=== PATIENT | male | born 1985 | race Caucasian/White ===

== ENCOUNTER 2017-10-18 02:42 | Emergency (ER) | payer OTHER, SELFPAY ==
[2017-10-18 02:43] VITALS: BP 139/83; PULSE 111; RESP 16; TEMP 36.8; O2SAT 96; BMI 29.3
--- NOTE | 2017-10-18 02:49 | ED.RN ---
CALLED [facility] FOR [facility] TESTING
--- NOTE | 2017-10-18 04:34 | ED.DCSUM_ITS ---
- ER Visit Summary Date of Service: 10/18/17 Chief Complaint: Left elbow laceration History of Present Illness: The patient is a 31 M who presents with a left elbow laceration. He was at work. He was cutting a piece of steel when his arm slipped and he caught his elbow on the edge of the steel. This occurred shortly prior to arrival. He complains of mild pain. Physical Examination: Afebrile vital signs stable No distress Heart regular Lungs clear There is a 2-1/2 cm crescent-shaped laceration over the right elbow active full range of motion this extends only into the subcutaneous tissue I do not appreciate any muscle or tendon injury Neurovascularly intact distally with normal sensation and brisk capillary refill Test Results: Not indicated Emergency Department Course and Treatment: Patient was anesthetized with 1% local lidocaine. His wound was irrigated with sterile saline. It was closed with a total of 6 simple interrupted 4-0 nonabsorbable sutures. Patient was instructed on local wound care. He understands to return for new or worsening symptoms and will otherwise follow-up with corporate care and was discharged home. Treatment Plan: [] Disposition: Discharge Impression: Right elbow laceration This note was generated with [employer] dictation software. It may contain incorrect words, spelling, and punctuation that were not noted in review of the chart prior to signing ED Disposition - Plan for ED Patient: Chief Complaint: Laceration Referrals: Care Physician,No Primary [Primary Care Provider] -
--- NOTE | 2017-10-18 04:34 | ED.DEP ---
ED Disposition - Plan for ED Patient: Chief Complaint: Laceration Instructions: ED Laceration All Referrals: Care Physician,No Primary [Primary Care Provider] - Corporate,[facility] [GROUP OF PHYSICIANS] -
[2017-10-18 04:44] VITALS: BP 137/90; PULSE 88; PULSE 89; RESP 18; O2SAT 97; O2SAT 98
== END 2017-10-18 04:51 | disposition home or self-care (01) ==
PROVIDERS: Emergency Provider Emergency Medicine
DX: S51.011A Laceration without foreign body of right elbow, initial encounter (principal); W26.8XXA Contact with other sharp object(s), not elsewhere classified, initial encounter; Y93.89 Activity, other specified; Y92.9 Unspecified place or not applicable; Y99.0 Civilian activity done for income or pay; Z72.0 Tobacco use
CPT/HCPCS: 12001; 99283

== ENCOUNTER 2020-01-18 21:27 | Emergency (ER) | payer OTHER, SELFPAY ==
[2020-01-18 21:28] VITALS: BP 154/100; PULSE 100; RESP 18; TEMP 36.1; O2SAT 98; BMI 27.2
[2020-01-18] MEDS: Fluorescein 1 MG STRIP 1 STRIP OPHTHALMIC (22:24)
[2020-01-18] MEDS: Tetracaine 0.5% Ophthalmic Bottle OPHTHALMIC (22:24)
--- NOTE | 2020-01-18 22:47 | ED.DCSUM_ITS ---
- ER Visit Summary Date of Service: 01/18/20 Chief Complaint: Foreign body in eye History of Present Illness: The patient is a 34 M with no primary care physician. He does not wear glasses or contacts. He reports that he wears safety goggles at work. He was cleaning up some metal shavings and had the abr upt onset of a feeling of a foreign body in his right eye. He denies any change in his vision. He denies any pain. His tetanus is up-to-date. Physical Examination: Vitals: Stable. Afebrile. General: Well-nourished and well-developed. Head: Normocephalic atraumatic. Right eye: Upper eyelid was everted. There is no foreign material under this. Metallic foreign body just inferior to his pupil at approximately 7:00 with a rust ring. Neck: Supple, no lymphadenopathy. No JVD. Nontender. Cardiovascular: Regular rate and rhythm. No murmurs. Respiratory: No respiratory distress. Clear to auscultation bilaterally. Abdominal: Soft, nontender, nondistended, normal bowel sounds. No guarding, rebound, or peritoneal signs. Back: Nontender. Extremities: Nontender, no edema. Skin: Normal color, no rash. Neurologic: Alert and oriented ?3. Cranial nerves II through XII are intact. Normal strength and sensation. Psych: Normal affect. Emergency Department Course and Treatment: I attempted to remove the foreign body with a moistened Q-tip without success. A TB syringe needle was then used and this was removed. The patient tolerated this well. Had bacitracin ophthalmic placed. There is still a small rust ring. Treatment Plan: Patient be discharged instructions to follow-up with Dr. Raygoza in 3 to 5 days for removal of the rust ring. Instructed use the bacitracin 3 times daily until he sees him. Return to the emergency department for any worsening symptoms. Disposition: To home in improved and stable condition. Impression: 1. Metallic foreign body right eye with rust ring. This note was generated with [employer] dictation software. It may contain incorrect words, spelling, and punctuation that were not noted in review of the chart prior to signing ED Disposition - Plan for ED Patient: Instructions: ED Foreign Body Cornea W Rust Ring Referrals: Jaxson Raygoza MD [STAFF PHYSICIAN] - 3-5 Days
[2020-01-18 23:26] VITALS: RESP 18
== END 2020-01-18 23:27 | disposition home or self-care (01) ==
PROVIDERS: Emergency Provider Emergency Medicine
DX: T15.91XA Foreign body on external eye, part unspecified, right eye, initial encounter (principal); W45.8XXA Other foreign body or object entering through skin, initial encounter; Y93.9 Activity, unspecified; Y92.9 Unspecified place or not applicable
CPT/HCPCS: 99283